=== PATIENT | female | born 1990 | race Caucasian/White ===

== ENCOUNTER 2016-11-10 23:01 | Emergency (ER) | payer MEDICAID ==
[2016-11-10 23:18] VITALS: BP 134/80
[2016-11-10] MEDS ORDERED: Bupivacaine 0.5%/EPINEPHrine 1:200,000 1.8 ML Cartridge INJECT ONE (23:36)
[2016-11-10] MEDS ORDERED: Lidocaine/EPINEPHrine/Tetracaine Soln 5 ML Each TOP ONE (23:41)
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
== END 2016-11-11 00:03 | disposition home or self-care (01) ==
LOC: JP.ED 23:01
DX: K08.89 Other specified disorders of teeth and supporting structures (principal); G89.29 Other chronic pain; F41.9 Anxiety disorder, unspecified; F32.9 Major depressive disorder, single episode, unspecified; F17.210 Nicotine dependence, cigarettes, uncomplicated; Z96.22 Myringotomy tube(s) status; Z98.890 Other specified postprocedural states; Z79.899 Other long term (current) drug therapy; Z88.8 Allergy status to other drugs, medicaments and biological substances
CPT/HCPCS: 64400; 99283; A9270

== ENCOUNTER 2017-01-10 02:15 | Emergency (ER) | payer MEDICAID, SELFPAY ==
[2017-01-10 02:44] VITALS: BP 134/98
[2017-01-10] MEDS ORDERED: Ondansetron 4 MG/2 ML SDV IVPUSH ONE (02:50)
[2017-01-10] MEDS ORDERED: Sodium Chloride 0.9% 1,000 ML IV SCH ×2 (03:00→04:00)
[2017-01-10] MEDS ORDERED: Ketorolac 30 MG/ML SDV IVPUSH ONE (03:03)
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
[2017-01-10] MEDS ORDERED: Acetaminophen/oxyCODONE 325-5 MG Tab PO ONE (03:52)
--- NOTE | 2017-01-10 09:25 | US ---
Pelvis Non OB Comp HISTORY: left sided abdominal pain. Transabdominal technique was used during the exam. FINDINGS: The uterus appears within normal limits in size and echogenicity measuring 8.3 x 4.8 x 5.3 cm. No ut erine mass is identified. Endometrial stripe is thickened measuring up to 20 mm in thickness. Both ovaries are within normal limits in size and echogenicity. The right ovary measures 2.5 x 1.8 x 3.2 cm. Left ovary measures 4.0 x 2.7 x 4.4 cm. Small follicles can be seen in each ovary. No adne xal or other pelvic mass or abnormal fluid collections are seen. There is good color Doppler blood f low to each ovary. A small amount of free fluid is seen in the pelvic cul-de-sac. IMPRESSION: Thickened endometrium. A small amount of free fluid is present in the pelvic cul-de-sac. No other so nographic abnormality of the pelvis is identified.
== END 2017-01-10 07:45 | disposition home or self-care (01) ==
LOC: JP.ED 02:15
DX: R10.32 Left lower quadrant pain (principal); F17.210 Nicotine dependence, cigarettes, uncomplicated; G89.29 Other chronic pain; M54.2 Cervicalgia; E03.9 Hypothyroidism, unspecified; Z90.89 Acquired absence of other organs; Z98.890 Other specified postprocedural states; Z79.899 Other long term (current) drug therapy; Z88.8 Allergy status to other drugs, medicaments and biological substances
CPT/HCPCS: 36415; 76856; 80048; 80305; 81001; 85025; 86140; 96361; 96374; 96375; 99284; A9270; J1885; J2405; J7040

== ENCOUNTER 2017-03-24 02:05 | Emergency (ER) | payer MEDICAID, SELFPAY | END 2017-03-24 02:31 | disposition left against medical advice (07) | LOC: JP.ED 02:05 | DX: Z53.21 Procedure and treatment not carried out due to patient leaving prior to being seen by health care provider (principal) ==

== ENCOUNTER 2017-03-27 17:07 | Emergency (ER) | payer MEDICAID ==
[2017-03-27 18:19] VITALS: BP 125/79
[2017-03-27] MEDS ORDERED: Bupivacaine 0.25% 10 ML SDV INJECT ONE (19:15)
[2017-03-27] MEDS ORDERED: Acetaminophen/HYDROcodone 325-7.5 MG Tab PO STA (19:33)
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
== END 2017-03-27 19:51 | disposition home or self-care (01) ==
LOC: JP.ED 17:07
DX: K08.89 Other specified disorders of teeth and supporting structures (principal); F17.210 Nicotine dependence, cigarettes, uncomplicated; F32.9 Major depressive disorder, single episode, unspecified; F41.9 Anxiety disorder, unspecified; Z98.890 Other specified postprocedural states; Z96.22 Myringotomy tube(s) status; Z79.899 Other long term (current) drug therapy; Z88.1 Allergy status to other antibiotic agents
CPT/HCPCS: 64400; 99283; A9270; 99282-25

== ENCOUNTER 2017-06-15 14:55 | Emergency (ER) | payer MEDICAID ==
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
[2017-06-15 15:43] VITALS: BP 119/69
== END 2017-06-15 15:43 | disposition home or self-care (01) ==
LOC: JP.ED 14:55
DX: K62.89 Other specified diseases of anus and rectum (principal); Z79.899 Other long term (current) drug therapy; Z88.8 Allergy status to other drugs, medicaments and biological substances
CPT/HCPCS: 99283

== ENCOUNTER 2017-08-04 14:58 | Emergency (ER) | payer MEDICAID ==
[2017-08-04 15:35] VITALS: BP 131/84
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
== END 2017-08-04 15:45 | disposition home or self-care (01) ==
LOC: JP.ED 14:58
DX: K04.7 Periapical abscess without sinus (principal); Z87.891 Personal history of nicotine dependence; Z79.899 Other long term (current) drug therapy; Z88.8 Allergy status to other drugs, medicaments and biological substances
CPT/HCPCS: 99283

== ENCOUNTER 2017-08-09 10:37 | Emergency (ER) | payer MEDICAID ==
[2017-08-09 10:47] VITALS: BP 119/78
[2017-08-09] MEDS ORDERED: Ketorolac 60 MG/2 ML SDV IM ONE (11:19)
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
== END 2017-08-09 12:20 | disposition home or self-care (01) ==
LOC: JP.ED 10:37
DX: K02.9 Dental caries, unspecified (principal); G89.29 Other chronic pain; Z88.8 Allergy status to other drugs, medicaments and biological substances; Z79.899 Other long term (current) drug therapy; Z87.891 Personal history of nicotine dependence
CPT/HCPCS: 96372; 99283; J1885; 99282

== ENCOUNTER 2017-08-11 09:32 | Emergency (ER) | payer MEDICAID ==
[2017-08-11 09:43] VITALS: BP 105/66
[2017-08-11] MEDS ORDERED: Acetaminophen/oxyCODONE 325-5 MG Tab PO ONE (10:30)
[2017-08-11] MEDS ORDERED: Ketorolac 60 MG/2 ML SDV IM ONE (10:30)
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
== END 2017-08-11 11:11 | disposition home or self-care (01) ==
LOC: JP.ED 09:32
DX: K04.7 Periapical abscess without sinus (principal); Z79.899 Other long term (current) drug therapy; Z88.8 Allergy status to other drugs, medicaments and biological substances; Z87.891 Personal history of nicotine dependence
CPT/HCPCS: 96372; 99283; A9270; J1885

== ENCOUNTER 2017-08-20 14:26 | Emergency (ER) | payer MEDICAID ==
[2017-08-20 14:46] VITALS: BP 118/72
[2017-08-20] MEDS ORDERED: Acetaminophen 325 MG Tab PO ONE (14:52)
[2017-08-20] MEDS ORDERED: Lactated Ringers 1,000 ML IV ONE (14:52)
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
[2017-08-20] MEDS ORDERED: Prochlorperazine 10 MG/2 ML SDV IVPUSH ONE (15:42)
== END 2017-08-20 17:11 | disposition home or self-care (01) ==
LOC: JP.ED 14:26
DX: O99.89 Other specified diseases and conditions complicating pregnancy, childbirth and the puerperium (principal); R50.9 Fever, unspecified; Z88.8 Allergy status to other drugs, medicaments and biological substances; Z79.899 Other long term (current) drug therapy; Z87.891 Personal history of nicotine dependence
CPT/HCPCS: 36415; 80048; 80305; 81001; 81025; 83605; 85027; 86140; 87804; 96361; 96374; 99284; A9270; J0780; J7120

== ENCOUNTER 2017-09-16 12:40 | Emergency (ER) | payer MEDICAID | END 2017-09-16 13:40 | disposition home or self-care (01) | LOC: JP.ED 12:40 | DX: Z53.21 Procedure and treatment not carried out due to patient leaving prior to being seen by health care provider (principal) | CPT/HCPCS: 99283 ==

== ENCOUNTER 2017-10-05 18:25 | Emergency (ER) | payer MEDICAID ==
[2017-10-05 19:29] VITALS: BP 113/73
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
== END 2017-10-05 23:40 | disposition home or self-care (01) ==
LOC: JP.ED 18:25
DX: F10.129 Alcohol abuse with intoxication, unspecified (principal); Y90.2 Blood alcohol level of 40-59 mg/100 ml; Z88.1 Allergy status to other antibiotic agents; Z79.899 Other long term (current) drug therapy; Z87.891 Personal history of nicotine dependence
CPT/HCPCS: 36415; 80053; 85025; 99284; G0480; 99283

== ENCOUNTER 2017-10-06 15:14 | Emergency (ER) | payer MEDICAID ==
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
[2017-10-06] MEDS ORDERED: Sodium Chloride 0.9% 1,000 ML IV SCH (16:15)
[2017-10-07] MEDS ORDERED: Ibuprofen 600 MG Tab PO ONE (06:27)
[2017-10-07 07:08] VITALS: BP 130/72
== END 2017-10-07 07:50 ==
LOC: JP.ED 15:14
DX: R45.851 Suicidal ideations (principal); F32.9 Major depressive disorder, single episode, unspecified; Z88.8 Allergy status to other drugs, medicaments and biological substances; Z79.899 Other long term (current) drug therapy; F17.210 Nicotine dependence, cigarettes, uncomplicated
CPT/HCPCS: 36415; 70450; 80053; 80305; 81025; 84443; 85025; 96360; 99285; A9270; G0480; J7040

== ENCOUNTER 2018-04-12 16:14 | Emergency (ER) | payer MEDICAID ==
[2018-04-12 16:53] VITALS: BP 125/75
[2018-04-12] MEDS ORDERED: Acetaminophen/HYDROcodone 325-5 MG Tab PO ONE (17:02)
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
== END 2018-04-12 17:20 | disposition home or self-care (01) ==
LOC: JP.ED 16:14
DX: K02.9 Dental caries, unspecified (principal); F17.210 Nicotine dependence, cigarettes, uncomplicated; F41.9 Anxiety disorder, unspecified; F32.9 Major depressive disorder, single episode, unspecified; Z88.8 Allergy status to other drugs, medicaments and biological substances
CPT/HCPCS: 99283; A9270

== ENCOUNTER 2018-04-14 15:40 | Emergency (ER) | payer MEDICAID ==
[2018-04-14 16:19] VITALS: BP 120/79
[2018-04-14] MEDS ORDERED: Bupivacaine 0.5%/EPINEPHrine 1:200,000 1.8 ML Cartridge INJECT ONE (17:04)
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
== END 2018-04-14 17:47 | disposition home or self-care (01) ==
LOC: JP.ED 15:40
DX: K03.81 Cracked tooth (principal); F17.210 Nicotine dependence, cigarettes, uncomplicated; Z88.8 Allergy status to other drugs, medicaments and biological substances
CPT/HCPCS: 64400; 99283; J3490

== ENCOUNTER 2018-11-28 13:58 | Emergency (ER) | payer MEDICAID ==
[2018-11-28 14:15] VITALS: BP 117/71
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
== END 2018-11-28 15:22 | disposition home or self-care (01) ==
LOC: JP.ED 13:58
DX: R22.0 Localized swelling, mass and lump, head (principal); K08.89 Other specified disorders of teeth and supporting structures; F17.210 Nicotine dependence, cigarettes, uncomplicated; Z88.8 Allergy status to other drugs, medicaments and biological substances; Z98.890 Other specified postprocedural states
CPT/HCPCS: 99282; 99283

== ENCOUNTER 2019-02-12 12:11 | Emergency (ER) | payer MEDICAID ==
[2019-02-12 12:23] VITALS: BP 126/66
[2019-02-12] MEDS ORDERED: Bupivacaine 0.5% 10 ML SDV INJECT ONE (12:41)
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
== END 2019-02-12 13:17 | disposition home or self-care (01) ==
LOC: JP.ED 12:11
DX: K08.89 Other specified disorders of teeth and supporting structures (principal); F41.9 Anxiety disorder, unspecified; F32.9 Major depressive disorder, single episode, unspecified; Z79.899 Other long term (current) drug therapy; Z88.6 Allergy status to analgesic agent; Z88.8 Allergy status to other drugs, medicaments and biological substances
CPT/HCPCS: 64400; 99282; J3490

== ENCOUNTER 2020-11-03 05:30 | Inpatient (IN) | payer MEDICAID ==
[2020-11-03] MEDS ORDERED: Lactated Ringers 1,000 ML IV SCH (06:00)
[2020-11-03] MEDS ORDERED: cefOXitin 1 GM Vial ONE (06:41)
[2020-11-03] MEDS ORDERED: Oxytocin 10 Units/1 ML SDV ONE ×2 (06:41→07:33)
[2020-11-03] MEDS ORDERED: Ondansetron 4 MG/2 ML SDV ONE (07:33)
[2020-11-03] MEDS ORDERED: cefOXitin 2 GM Vial ONE (07:33)
[2020-11-03] MEDS ORDERED: Cyclobenzaprine 10 MG Tab PO PRN (09:00)
[2020-11-03] MEDS ORDERED: Ondansetron 4 MG/2 ML SDV IVPUSH PRN (09:00)
[2020-11-03] MEDS ORDERED: Acetaminophen 1,000 MG in Premix Bag 1 BAG IV ONE (09:30)
[2020-11-03] MEDS ORDERED: Ketorolac 60 MG/2 ML SDV IM ONE (09:30)
[2020-11-03] MEDS: Gabapentin 300 MG Cap PO SCH ×2 (09:57→20:54)
[2020-11-03] MEDS: Dextrose 5%-Lactated Ringers 1,000 ML IV SCH ×2 (10:14→16:33)
[2020-11-03] MEDS: hydrOXYzine HCL 100 MG/2 ML SDV IM PRN ×2 (10:31→23:12)
[2020-11-03] MEDS: Buprenorphine/Naloxone 8-2 MG Tab.SL SL PRN ×2 (10:31→18:00)
[2020-11-03] MEDS: cefOXitin 2 GM in Sodium Chloride 0.9% 50 ML IV SCH ×2 (14:27→20:54)
[2020-11-03] MEDS: Acetaminophen 500 MG Tab PO SCH ×2 (15:25→21:09)
[2020-11-03] MEDS: Ibuprofen 600 MG Tab PO SCH ×2 (15:25→21:10)
[2020-11-04] MEDS: cefOXitin 2 GM in Sodium Chloride 0.9% 50 ML IV SCH ×2 (02:35→09:56)
[2020-11-04] MEDS: Ibuprofen 600 MG Tab PO SCH ×2 (05:12→09:28)
[2020-11-04] MEDS: Acetaminophen 500 MG Tab PO SCH ×4 (05:12→22:53)
[2020-11-04] MEDS: Gabapentin 300 MG Cap PO SCH ×3 (08:37→20:18)
[2020-11-04] MEDS: hydrOXYzine HCl 25 MG Tab PO PRN ×3 (08:37→22:57)
[2020-11-04] MEDS: Pantoprazole 40 MG Tab.CR PO SCH (08:37)
[2020-11-04] MEDS ORDERED: Lanolin 100% Cream 40 GM Tube TOP PRN (09:07)
[2020-11-04] MEDS: Buprenorphine/Naloxone 8-2 MG Tab.SL SL PRN ×2 (09:26→19:36)
--- NOTE | 2020-11-04 11:47 | PN ---
DATE OF SERVICE: 11/04/2020 SUBJECTIVE: Deena is postoperative day 1 following a . Pain has been controlled. She has been resting comfortably. Vital signs stable. Oral intake 1620, urine output via Moctezuma catheter is 4600. She has no other concerns or questions today. OBJECTIVE: GENERAL: Deena Mckinley is a pleasant 29-year-old female. VITAL SIGNS: TPR is 98.3, 83, and 18. Blood pressure 107/65. HEENT: Negative. NECK: Supple. HEART: Regular rate and rhythm. LUNGS: Clear. ABDOMEN: Incision looks good. EXTREMITIES: Without peripheral edema. ASSESSMENT: section with delivery of viable male infant, date 11/03/2020. Surgeon: Konrad Yi MD. PLAN: 1. Discontinue Moctezuma catheter. 2. Regular diet. 3. Vistaril 50 mg q.4 hours p.r.n. pain. May shower. Saline lock IV if oral intake adequate. Discontinue continuous pulse ox. 4. We will evaluate p.r.n. or in a.m. Karen Ireland PA-C /[id number]
[2020-11-04] MEDS: Ketorolac 30 MG/ML SDV IVPUSH SCH ×2 (12:39→17:32)
[2020-11-05] MEDS: Ketorolac 30 MG/ML SDV IVPUSH SCH ×4 (00:49→18:12)
[2020-11-05] MEDS: Acetaminophen 500 MG Tab PO SCH ×3 (06:15→16:11)
[2020-11-05] MEDS: Pantoprazole 40 MG Tab.CR PO SCH (08:52)
[2020-11-05] MEDS: Gabapentin 300 MG Cap PO SCH ×2 (08:53→20:14)
[2020-11-05] MEDS: Buprenorphine/Naloxone 8-2 MG Tab.SL SL PRN ×2 (09:21→20:14)
[2020-11-05] MEDS: Docusate Sodium 100 MG Cap PO SCH (18:06)
[2020-11-06] MEDS: Ketorolac 30 MG/ML SDV IVPUSH SCH ×2 (03:31→06:10)
[2020-11-06] MEDS: Docusate Sodium 100 MG Cap PO SCH ×2 (03:32→08:34)
[2020-11-06] MEDS: Acetaminophen 500 MG Tab PO SCH ×3 (03:32→11:15)
[2020-11-06] MEDS: Gabapentin 300 MG Cap PO SCH (08:34)
[2020-11-06] MEDS: Pantoprazole 40 MG Tab.CR PO SCH (08:34)
[2020-11-06] MEDS: Buprenorphine/Naloxone 8-2 MG Tab.SL SL PRN (08:49)
[2020-11-06 13:45] VITALS: BP 128/63; PULSE 78
--- NOTE | 2020-11-07 15:16 | DISCH ---
FINAL DIAGNOSES: 1. Term with history of previous section. 2. Incarcerated incisional hernia. 3. Covering opioid use disorder on Suboxone. 4. History of degenerative disk disease. 5. History of nodular goiter. OPERATIVE PROCEDURE: This was done on 11/03, repeat section along with repair of incarcerated incisional hernia. SUMMARY: This is a 29-year-old female presenting with already scheduled repeat section. She underwent a section without difficulty on the date of admission and postoperatively has done well. The patient has been on Suboxone preoperatively, continued that postoperatively without any narcotic use. Presently, has been on Tylenol and Toradol and having adequate pain control of low back. The patient will be discharged, but will be staying in the hospital while waiting for the baby to fully recover from any withdrawal from the Suboxone use. The baby does appear to be getting better each day and this probably might be not more than another day or 2. She will be instructed to finish off her vitamins, and otherwise Tylenol 1 g q.6 hours p.r.n. pain, Toradol 10 mg q.i.d. p.r.n. pain #20, and then milk of magnesia p.r.n. She will be instructed to finish off her vitamins, should be following up with Karen Ireland at [facility] on 11/14. /[id number]
--- NOTE | 2020-11-07 15:40 | PN ---
DATE OF SERVICE: 11/05/2020 The patient has been afebrile with stable vital signs. Oral intake is satisfactory. At this point, she is being kept in the hospital as her baby is likely to have some withdrawal issues related to the patient's Suboxone use preoperatively and will need to be watched for a minimum of 4 days and continue to have her breast feeding as such we will need to have the patient stay in the hospital with the baby. Konrad Yi MD /[id number]
--- NOTE | 2020-11-15 12:28 | OR ---
DATE OF PROCEDURE: 11/03/2020 SURGEON: Konrad Yi MD PREOPERATIVE DIAGNOSIS: Term with history of previous section. POSTOPERATIVE DIAGNOSES: 1. Term with history of previous section. 2. Incarcerated incisional hernia. OPERATIVE PROCEDURES: 1. Repeat section (91043). 2. Repair of incarcerated incisional hernia (35193). ANESTHESIA: Spinal. 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 Plan is to proceed with a repeat section. Potential risks including bleeding, infection, injury to mother and her baby were all reviewed, and the patient wishes to proceed. DETAILS OF PROCEDURE: The patient was taken to the operating room, and after spinal anesthetic was placed, was positioned with a roll underneath the right hip, and Moctezuma catheter inserted. The abdomen was prepped and draped. Previous transverse Pfannenstiel incision was used and carried down through the skin and subcutaneous tissue, and through the anterior rectus sheath. Subrectus sheath flaps were raised superiorly and inferiorly. In the lower third and upper two-thirds of the exposed area, there was large splaying of the rectus muscles, and this contained some incarcerated omentum and preperitoneal fat within it. The hernia tissue was subsequently excised during the closure of the abdomen. The peritoneal reflection of the bladder on the uterus was then divided and then transverse lower uterine segment incision was made and carried down through the full thickness of the placenta and membranes. Viable male was then delivered through a vertex presentation without difficulty. Cord was clamped and cut. Routine care given off the field per nurse practitioner, Danielle Stroud. The patient was given IV and intrauterine oxytocin and IV cefoxitin. Good uterine contractions were noted, and placenta was delivered without difficulty. The uterus was then closed with 2 layers of 2-0 Vicryl stitch as was the peritoneal reflection of the bladder onto the uterus, and the uterus was then returned back into the peritoneal cavity. The hernia tissue was then excised as mentioned above, and the rectus musculature and peritoneum were then reapproximated closing the area of herniation with a #2 Vicryl stitch. This was also used to close the anterior rectus sheath. Subcutaneous tissue was irrigated with antibiotic-containing saline solution and closed with some 3-0 and 4-0 Vicryl stitch deep and surgical glue. The patient was taken to the recovery room in satisfactory condition. Nurse practitioner, Danielle Stroud, served as an product development assistant in this case. She was an essential component to the procedure as per ACOG guidelines. Konrad Yi MD /[id number]
== END 2020-11-06 13:48 | disposition home or self-care (01) | DRG 787 ==
LOC: JP.SDS 05:30 → JP.SDSSCHI 07:44 → JP.MS 07:45
PROVIDERS: ADMIT Surgery; ATTEND Surgery
PROC: 10D00Z1 Extraction of Products of Conception, Low, Open Approach (ICD-10-PCS; principal; 2020-11-03)
PROC: 0WQF0ZZ Repair Abdominal Wall, Open Approach (ICD-10-PCS; 2020-11-03)
DX: O34.211 Maternal care for low transverse scar from previous cesarean delivery (principal); K43.0 Incisional hernia with obstruction, without gangrene; E04.9 Nontoxic goiter, unspecified; F11.10 Opioid abuse, uncomplicated; M50.30 Other cervical disc degeneration, unspecified cervical region; F41.1 Generalized anxiety disorder; E05.90 Thyrotoxicosis, unspecified without thyrotoxic crisis or storm; Z79.899 Other long term (current) drug therapy; Z3A.38 38 weeks gestation of pregnancy; Z37.0 Single live birth; Z88.5 Allergy status to narcotic agent; Z88.1 Allergy status to other antibiotic agents
CPT/HCPCS: 36415; 80305-QW; 85025; 85027; 86850; 86900; 86901; 88307; 94762; A9270-GY; J0131; J0574-GY; J0694; J1790; J1885; J2405; J2590; J3410; J7121

== ENCOUNTER 2020-11-15 08:40 | Day surgery (SDC) | payer MEDICAID ==
[~2020-11-15 08:40] MED LIST: Dexamethasone 4 MG/ML SDV ONE; Dextrose 5%-Lactated Ringers 1,000 ML IV SCH; Glycopyrrolate 0.2 MG/ML 5 ML MDV ONE; Neostigmine Methylsulfate 1 MG/ML 5 ML Syringe ONE; Ondansetron 4 MG/2 ML SDV ONE; Propofol 200 MG/20 ML SDV ONE; Rocuronium 50 MG/5 ML Vial ONE; Succinylcholine 200 MG/10 ML MDV ONE; fentaNYL 250 MCG/5 ML SDV ONE
[2020-11-15] MEDS ORDERED: Meropenem 500 MG in Sodium Chloride 0.9% 50 ML IV ONE (08:45)
[2020-11-15] MEDS ORDERED: Acetaminophen 500 MG Tab PO ONE (08:45)
[2020-11-15] MEDS ORDERED: Methylergonovine 0.2 MG/1 ML Amp ONE (09:30)
[2020-11-15] MEDS ORDERED: Doxycycline 100 MG in Sodium Chloride 0.9% 100 ML IV ONE (11:00)
[2020-11-15] MEDS ORDERED: Ibuprofen 800 MG Tab PO ONE (11:45)
[2020-11-15 12:31] VITALS: BP 172/75; PULSE 67
--- NOTE | 2020-11-16 17:35 | OR ---
DATE OF PROCEDURE: 11/15/2020 SURGEON: Konrad Yi MD PREOPERATIVE DIAGNOSIS: Probable endometritis. POSTOPERATIVE DIAGNOSIS: Probable endometritis associated with retained intrauterine clot. OPERATIVE PROCEDURE: Dilation and curettage (00956). ANESTHESIA: General. INDICATIONS FOR PROCEDURE: The patient is a 12-day status post a repeat section. She presented with some tenderness in the uterus. Ultrasound was obtained yesterday which showed some free fluid within the uterus, and at this point, the patient appears to probably have some element of endometritis. Plan is to proceed with the dilation and curettage with intraoperative cultures. Potential risks including bleeding, infection, possible uterine perforation were discussed, and the patient wishes to proceed. PROCEDURE IN DETAIL: The patient was taken to the operating room and placed in a supine position. After general endotracheal anesthesia was induced, the patient was placed in a lithotomy position and a vaginal prep performed. The prep within the vagina was then removed to obtain adequate cultures. Initially, the patient was noted to have some mucoid material within the cervix. The cervix was never dilated as the patient had an elective section which probably accounted for relatively poor drainage. There was again some mucus within the cervix. Cultures of this were initially obtained. The Gram stains on these showed some gram-positive cocci. The mucus was then evacuated using suction and the cervix was then dilated to roughly 1 cm in size. Once the dilation was completed, blunt curettes were used so as to avoid intrauterine adhesions, roughly 20 mL of old blood came. This was evacuated and then suction placed in the uterus as well. Cultures of this blood were obtained and the Gram stain on this did show gram-positive cocci as well as some gram-positive rods. At that point, the patient was noted to have good uterine contractions. She was given some Methergine to facilitate that, this being . At that point, there appeared to be good drainage by means of dilation and curettage process, and vaginal packing was placed. The patient tolerated the procedure well. The patient will be continued on doxycycline 100 mg b.i.d. She will receive meropenem preoperatively which should provide a broad-spectrum initial coverage, and then doxycycline will be given in the recovery room, and we will give 10-day course of doxycycline thereafter. The patient to stop breast-feeding, and her and her were instructed that she should not resume breast-feeding at least while she is on the doxycycline. Given this, done with the breast-feeding phase of this period. The patient was instructed that if she develops fever, chills, increasing abdominal pain, present to the emergency room or clinic. Otherwise, she will be following up with Danielle Stroud CNM, [facility] this Saturday, and Karen Ireland, on November 28. Konrad Yi MD /[id number]
== END 2020-11-15 12:51 | disposition home or self-care (01) ==
LOC: JP.SDS 08:40
PROVIDERS: ATTEND Surgery
DX: N85.8 Other specified noninflammatory disorders of uterus (principal); F17.200 Nicotine dependence, unspecified, uncomplicated; Z01.812 Encounter for preprocedural laboratory examination; Z20.822 Contact with and (suspected) exposure to COVID-19
CPT/HCPCS: 36415; 80053; 84703; 85025; 87070; 87075; 87077; 87186; 87205; A9270-GY; J0330; J1100; J2185; J2210; J2405; J2704; J2710; J3010; J3490; J7121; U0002